=== PATIENT | female | born 1945 | race Caucasian/White ===

== ENCOUNTER → 2016-03-28 | Outpatient (CLI) | payer MEDICARE, BC | LOC: MC.RAD 13:13 | DX: Z12.31 Encounter for screening mammogram for malignant neoplasm of breast (principal) ==

== ENCOUNTER → 2018-07-04 | Outpatient (CLI) | payer MEDICARE, BC | LOC: MC.RAD 10:32 | DX: Z12.31 Encounter for screening mammogram for malignant neoplasm of breast (principal) ==

== ENCOUNTER 2018-07-13 12:58 | Outpatient (CLI) | payer MEDICARE, BC ==
[2018-07-13] MEDS ORDERED: HCTZ 25MG TAB25 MG PO (13:41)
[2018-07-13] MEDS ORDERED: NORVASC 10MG10 MG PO (13:42)
[2018-07-13] MEDS ORDERED: VITAMIN D 1001000 IU PO (13:43)
[2018-07-13] MEDS ORDERED: CALCIUM 600-D 61 TAB PO (13:44)
[2018-07-13 14:16] VITALS: BP 123/64; PULSE 74; TEMP 98.3
== END 2018-07-13 15:15 | disposition home or self-care (01) ==
LOC: EUO 12:58
DX: M81.0 Age-related osteoporosis without current pathological fracture (principal)
CPT/HCPCS: J3489

== ENCOUNTER 2019-08-08 13:20 | Outpatient (CLI) | payer MEDICARE, BC ==
[~2019-08-08] VITALS: Ht 154.9 cm; Wt 72.5 kg
[~2019-08-08 13:20] MED LIST: CALCIUM 600-D 61 TAB PO; HCTZ 25MG TAB25 MG PO; NORVASC 10MG10 MG PO; VITAMIN D 1001000 IU PO
[2019-08-08 13:37] VITALS: BP 126/69; PULSE 79; TEMP 99
[2019-08-08] MEDS ORDERED: CLARITIN 1010 MG/TAB PO (14:13)
[2019-08-08] MEDS ORDERED: PROBIOTIC FORMU1 CAP PO (14:15)
[2019-08-08] MEDS ORDERED: DITROPAN 5MG TAB5 MG PO (14:15)
== END 2019-08-08 16:38 | disposition home or self-care (01) ==
LOC: EUO 13:20
DX: M81.0 Age-related osteoporosis without current pathological fracture (principal)
CPT/HCPCS: J3489

== ENCOUNTER → 2019-09-10 | Outpatient (CLI) | payer MEDICARE, BC ==
[~2019-09-10] MED LIST changes: +CLARITIN 1010 MG/TAB PO; +DITROPAN 5MG TAB5 MG PO; +PROBIOTIC FORMU1 CAP PO
== END ==
LOC: MC.RAD 09:50
DX: Z12.31 Encounter for screening mammogram for malignant neoplasm of breast (principal)

== ENCOUNTER → 2020-12-04 | Outpatient (CLI) | payer MEDICARE, BC | LOC: MC.RAD 10:26 | DX: Z12.31 Encounter for screening mammogram for malignant neoplasm of breast (principal); N64.89 Other specified disorders of breast ==

== ENCOUNTER → 2020-12-11 | Outpatient (CLI) | payer MEDICARE, BC | LOC: MC.RAD 12:47 | DX: N63.10 Unspecified lump in the right breast, unspecified quadrant (principal) ==

== ENCOUNTER → 2020-12-16 | Outpatient (CLI) | payer MEDICARE, BC | END | disposition still patient (30) | LOC: MC.RAD 08:46 | DX: N63.10 Unspecified lump in the right breast, unspecified quadrant (principal) ==

== ENCOUNTER 2021-01-19 06:45 | Day surgery (SDC) | payer MEDICARE, BC ==
[~2021-01-19] VITALS: Ht 157.5 cm; Wt 71.7 kg
[~2021-01-19 06:45] MED LIST changes: -VITAMIN D 1001000 IU PO; +VITAMIN D31000 IU PO
[2021-01-19] MEDS ORDERED: MULTI VITAMINS1 TAB PO (08:08)
[2021-01-19] MEDS ORDERED: RECLAST5 MG/100 M IV (08:08)
[2021-01-19 08:33] VITALS: BP 142/73; PULSE 92; TEMP 98.3
[2021-01-19 11:12] VITALS: TEMP 99.1
[2021-01-19] MEDS ORDERED: NORCO 325 MG-51 TAB PO (11:13)
[2021-01-19 11:35] VITALS: BP 143/73; PULSE 81
--- NOTE | 2021-01-19 11:35 | NUR ---
Patient returns to room 2 per cart accompanied by Elisha RINCON and is awake and alert. Temp 99.0. Dressing clean and dry on the right breast incisional area. IV fluids infusing and site is free of redness or swelling. Spouse in room. Siderails up x2 and call light in reach.
[2021-01-19 11:50] VITALS: BP 135/78; PULSE 81
--- NOTE | 2021-01-19 11:50 | NUR ---
Continues to rest without complaints of pain or nausea.
[2021-01-19 12:05] VITALS: BP 126/62; PULSE 84
--- NOTE | 2021-01-19 12:05 | NUR ---
Awake and tallking with spouse.
--- NOTE | 2021-01-19 12:10 | NUR ---
IV to INT and assisted up to the bathroom. Gait is steady. Voids and returns to room. Given applesauce to eat and is drinking cranberry juice. Continues to deny pain or nausea.
--- NOTE | 2021-01-19 12:38 | NUR ---
INT needle discontinued and site is free of redness. Assisted patient with dressing. Instructed to wear bra for comfort.
--- NOTE | 2021-01-19 12:41 | NUR ---
Patient dismissed to home driven by spouse and taken to the front door per wheelchair and assisted into vehicle with instructions in hand.
== END 2021-01-19 12:41 | disposition home or self-care (01) ==
LOC: SDCO 06:45
DX: C50.411 Malignant neoplasm of upper-outer quadrant of right female breast (principal); Z17.0 Estrogen receptor positive status [ER+]; I10 Essential (primary) hypertension; Z79.899 Other long term (current) drug therapy
CPT/HCPCS: A4648; J7120

== ENCOUNTER → 2021-03-02 | Outpatient (CLI) | payer MEDICARE, BC ==
[~2021-03-02] MED LIST changes: +MULTI VITAMINS1 TAB PO; +NORCO 325 MG-51 TAB PO; +RECLAST5 MG/100 M IV
== END ==
LOC: COL.RAD 08:56
DX: Z51.0 Encounter for antineoplastic radiation therapy (principal); M89.9 Disorder of bone, unspecified; Z17.0 Estrogen receptor positive status [ER+]; Z80.3 Family history of malignant neoplasm of breast
CPT/HCPCS: A9503

== ENCOUNTER 2021-04-20 13:47 | Outpatient (CLI) | payer MEDICARE, BC ==
[~2021-04-20] VITALS: Ht 157.5 cm; Wt 71.0 kg
[2021-04-20 14:30] VITALS: BP 123/62; PULSE 95; TEMP 98.1
== END 2021-04-20 14:45 | disposition home or self-care (01) ==
LOC: EUO 13:47
DX: M81.0 Age-related osteoporosis without current pathological fracture (principal)
CPT/HCPCS: J3489

== ENCOUNTER → 2023-02-03 | Outpatient (CLI) | payer MEDICARE, BC | LOC: MC.RAD 09:45 | DX: Z12.31 Encounter for screening mammogram for malignant neoplasm of breast (principal) ==